=== PATIENT | male | born 1960 | race African-American/Black ===

== ENCOUNTER 2017-09-13 07:42 | Outpatient (CLI) | payer MEDICARE ==
--- NOTE | 2017-09-13 10:21 | ULT ---
VENOUS DUPLEX SONOGRAM LEFT LOWER EXTREMITY: HISTORY: Left leg pain and edema. Prior DVT. FINDINGS: The left common femoral vein and greater saphenous junction were evaluated along with the femoral, de ep femoral, popliteal, and posterior tibial veins. T here is good color and spectral Doppler flow, compression, and augmentation. IMPRESSION: No sonographic evidence of deep vein thrombosis left lower extremity. POS: [facility]
== END 2017-09-13 07:43 | disposition home or self-care (01) ==
LOC: SCSULT 07:42
PROVIDERS: ATTEND Family Medicine
DX: M79.605 Pain in left leg (principal); Z86.718 Personal history of other venous thrombosis and embolism

== ENCOUNTER 2018-05-28 14:43 | Outpatient (CLI) | payer MEDICARE ==
--- NOTE | 2018-05-28 17:09 | MRI ---
MR OF THE RIGHT KNEE WITHOUT CONTRAST: 05/28/18 INDICATION: 57-year-old male with right knee internal derangement. The patient reportedly slipped and fell injuri ng the right knee a few weeks ago. COMPARISON: Right knee radiographs dated May 15, 2018. FINDINGS: As seen on the comparison radiograph is moderate to severe osteoarthrosis of the right knee with prom inent marginal joint osteophytes affecting the femoral tibial and patellofemoral comparison. There ar e areas of near full thickness articular carthilage thinning involving the inferior lateral patellar facet as well as the medial femorotibial joint compartment. There is a horizontally oriented oblique tear involving the posterior horn of the medial meniscus wit h a displaced meniscal flap seen underlying the posterior junction of the medial meniscus within the inferior medial gutter measuring 5 mm. The lateral meniscus demonstrates some central free edge fray ing involving the lateral meniscal body. There is suspicion for horizontally oriented tear involving the posterior junction on image 8 of series 7. The ACL is completely disrupted near its mid portion. The PCL is intact. The MCL and LCLC are intact. The extensor mechanism is intact. There is moderate distention of the semitendinosus/TCL bursa. There is moderate joint effusion. IMPRESSION: 1. Moderate to severe osteoarthrosis of the right knee. 2. Complete ACL disruption. 3. Medial and latera meniscal tear. 4. Moderate semitendinosus/TCL bursitis. POS: [facility]
== END 2018-05-28 14:44 | disposition home or self-care (01) ==
LOC: SCSMRI 14:43
PROVIDERS: ATTEND Family Medicine
DX: M23.91 Unspecified internal derangement of right knee (principal); S83.511A Sprain of anterior cruciate ligament of right knee, initial encounter; S83.241A Other tear of medial meniscus, current injury, right knee, initial encounter; S83.281A Other tear of lateral meniscus, current injury, right knee, initial encounter; M17.11 Unilateral primary osteoarthritis, right knee